=== PATIENT | female | born 1965 | race Caucasian/White ===

== ENCOUNTER 2016-10-08 14:44 | Emergency (ER) | payer OTHER ==
[~2016-10-08] VITALS: Ht 167.6 cm; Wt 63.5 kg
[2016-10-08 15:05] VITALS: BP 112/76
--- NOTE | 2016-10-08 15:48 | ED ANIMAL BITE/WOUND CHECK ---
History of Present Illness General Chief Complaint: General Adult Stated Complaint: "EXPOSED TO RABIES, BAT IN HOUSE X2DAYS" Source: patient, family, old records Exam Limitations: no limitations Vital Signs & Intake/Output Vital Signs & Intake/Output Vital Signs Date Time Temp Pulse Resp B/P B/P Pulse O2 O2 Flow FiO2 Mean Ox Delivery Rate 10/08 1505 97.8 69 18 112/76 100 Room Air ED Intake and Output 10/09 0000 10/08 1200 Intake Total Output Total Balance Patient 140 lb Weight Weight Reported by Patient Measurement Method Allergies Coded Allergies: casein (Severe, HIVES 10/08/16) Uncoded Allergies: MINICIN (Severe, HIVES 10/08/16) Triage Note: PT TO ED FOR RABIES EXPOSURE, STATING THERE WAS A BAT IN THEIR HOUSE, NO KNOWN BITES Triage Nurses Notes Reviewed? yes Onset: Abrupt Duration: week(s): (1) Timing: remote history Injury Environment: home Is Injury an Animal Bite? No Severity: mild Severity Numbers: 1 No Modifying Factors: none Associated Symptoms: DENIES HPI: 50-year-old FEmale presents with family for evaluation after they found a pad in their house. The patient denies being bit. She is without any complaints or modifying factors or associated symptoms otherwise. They were referred to the ER for rabies vaccination protocol. She is otherwise without any complaints (MILADY CRAIG) Past History Travel History Traveled to [place] past 21 day No Medical History Any Pertinent Medical History? none Neurological: NONE EENT: NONE Cardiovascular: NONE Respiratory: NONE Gastrointestinal: NONE Hepatic: NONE Renal: NONE Musculoskeletal: NONE Psychiatric: NONE Endocrine: NONE Blood Disorders: NONE Cancer(s): NONE Surgical History Surgical History: none Psychosocial History What is your primary language Maltese Tobacco Use: Never used ETOH Use: occasional use Illicit Drug Use: denies illicit drug use Family History Hx Contributory? No (MILADY CRAIG) Review of Systems Review of Systems Constitutional: Reports: see HPI. All Other Systems: Reviewed and Negative Comments Review of systems: See HPI, All other systems negative. Constitutional, no chills no fever, no malaise HEENT: No visual changes no sore throat no congestion Cardiovascular: No chest pain , no palpitation Skin: no rashes, no change in skin Respiratory: No dyspnea no cough no sputum GI: No nausea no vomiting, Muscle skeletal: No joint pain, no joint swelling, no back pain, no neck pain, Neurologic: no headache Psych: No stress Heme/endocrine: No bruising Immunology: No lymphadenopathy (MILADY CRAIG) Physical Exam Physical Exam General Appearance: well developed/nourished, no apparent distress, alert, awake Comments: Well-developed well-nourished patient in no apparent distress. HEENT: Atraumatic, extraocular motion intact Neck: Supple, FROM Back: FROM Respiratory: No respiratory distress. Patient speaking in full complete sentences. Extremities: full range of motion Neuro: awake, alert, and oriented to person, place and time. There were no obvious focal neurologic abnormalities. Skin: Warm & dry;No appreciable rash on exposed skin Psych: Mood affect normal, normal memory normal judgment. (MILADY CRAIG) Progress Differential Diagnosis: rabies, cellulitis Plan of Care: Current Medications Sig/Reinier Start time Last Medication Dose Stop Time Status Admin Rabies Immune 1,260 UNITS ONCE ONE 10/08 1600 AC Globulin 10/08 1601 (Rabies Immune Globlulin Inj) Rabies Vaccine 1 SYR ONCE ONE 10/08 1600 AC (Rabies (Vaccine) 10/08 1601 Inj (1ML)) Rabies immunoglobulin vaccine administered the patient was instructed as to return dates I answered all their questions apical pleural plan (MILADY CRAIG) Departure Departure Time of Disposition: 1600 Disposition: HOME OR SELF CARE Condition: Stable Clinical Impression Primary Impression: Need for rabies vaccination Referrals: UNKNOWN (PCP/Family) Additional Instructions: As discussed return for further rabies vaccination on 10/11, 10/15 and 10/22. return at anytime sooner with any concerns Departure Forms: Customer Survey General Discharge Information (MILADY CRAIG) PA/SUPPLIER MANAGER Co-Sign Statement Statement: ED Attending supervision documentation- I saw and evaluated the patient. I have also reviewed all the pertinent lab results and diagnostic results. I agree with the findings and the plan of care as documented in the PA's/SUPPLIER MANAGER's documentation. x I have reviewed the ED Record and agree with the PA's/SUPPLIER MANAGER's documentation. [] Additions or exceptions (if any) to the PAs/SUPPLIER MANAGER's note and plan are summarized below: [] (MARIVEL BETTENCOURT,SUSAN)
== END 2016-10-08 16:52 ==
LOC: ERH 14:44
DX: Z20.3 Contact with and (suspected) exposure to rabies (principal)
CPT/HCPCS: 90376; 90471; 99281

== ENCOUNTER 2016-10-11 09:05 | Emergency (ER) | payer OTHER ==
[2016-10-11 09:10] VITALS: BP 98/64
--- NOTE | 2016-10-11 09:39 | ED ANIMAL BITE/WOUND CHECK ---
History of Present Illness General Chief Complaint: General Adult Stated Complaint: SECOND RABIES SHOT Source: patient, old records Exam Limitations: no limitations Vital Signs & Intake/Output Vital Signs & Intake/Output Vital Signs Date Time Temp Pulse Resp B/P B/P Pulse O2 O2 Flow FiO2 Mean Ox Delivery Rate 10/11 0910 98.0 80 20 98/64 98 Room Air Allergies Coded Allergies: casein (Severe, HIVES 10/08/16) Uncoded Allergies: MINICIN (Severe, HIVES 10/08/16) Reconcile Medications No Known Home Medications Triage Note: Pt presents to ER for second rabies shot Triage Nurses Notes Reviewed? yes Onset: Abrupt Duration: day(s): (3) Timing: recent history Injury Environment: home Associated Symptoms: none HPI: 50 year old female presents for second rabies vaccine. She was exposed to a bat in the house. Past History Travel History Traveled to [place] past 21 day No Medical History Any Pertinent Medical History? see below for history Neurological: NONE EENT: NONE Cardiovascular: NONE Respiratory: NONE Gastrointestinal: NONE Hepatic: NONE Renal: NONE Musculoskeletal: NONE Psychiatric: NONE Endocrine: NONE Blood Disorders: NONE Cancer(s): NONE Surgical History Surgical History: none Psychosocial History What is your primary language Mohawk Tobacco Use: Never used Family History Hx Contributory? No Review of Systems Review of Systems Constitutional: Denies: chills, fever. EENTM: Reports: no symptoms. Respiratory: Denies: cough, short of breath. Cardiovascular: Denies: chest pain. GI: Reports: no symptoms. Genitourinary: Reports: no symptoms. Musculoskeletal: Reports: no symptoms. Skin: Reports: no symptoms. Neurological/Psychological: Reports: no symptoms. Hematologic/Endocrine: Denies: bruising. Immunologic/Allergic: Reports: no symptoms. All Other Systems: Reviewed and Negative Physical Exam Physical Exam General Appearance: well developed/nourished, mild distress Head: atraumatic Eyes: Bilateral: normal appearance. Ears, Nose, Throat: hearing grossly normal Neck: normal inspection, supple Respiratory: normal breath sounds Cardiovascular: regular rate/rhythm Extremities: normal range of motion Neurologic/Psych: awake, alert, oriented x 3, normal mood/affect Progress Differential Diagnosis: rabies prophylaxis Plan of Care: RABIES PROPHYLAXIS Departure Departure Time of Disposition: 946 Disposition: HOME OR SELF CARE Condition: Stable Clinical Impression Primary Impression: Need for rabies vaccination Referrals: NANCY BETTENCOURT,GISSELLE Phillips (PCP/Family) Additional Instructions: RETURN FOR THE REMAINDER OF THE VACCINES. Departure Forms: Customer Survey General Discharge Information Prescriptions: Current Visit Scripts No Known Home Medications
== END 2016-10-11 09:56 ==
LOC: ERH 09:05
DX: Z23 Encounter for immunization (principal)
CPT/HCPCS: 90471; 99281

== ENCOUNTER 2016-10-15 07:50 | Emergency (ER) | payer OTHER ==
[~2016-10-15] VITALS: Ht 167.6 cm; Wt 63.5 kg
[2016-10-15 08:00] VITALS: BP 113/72
--- NOTE | 2016-10-15 08:02 | ED ANIMAL BITE/WOUND CHECK ---
History of Present Illness General Chief Complaint: General Adult Stated Complaint: HERE FOR 3RD RABIES SHOT Source: patient, family, old records Exam Limitations: no limitations Vital Signs & Intake/Output Vital Signs & Intake/Output Vital Signs Date Time Temp Pulse Resp B/P B/P Pulse O2 O2 Flow FiO2 Mean Ox Delivery Rate 10/15 08 97.1 60 18 113/72 100 Room Air Allergies Coded Allergies: casein (Severe, HIVES 10/08/16) Uncoded Allergies: MINICIN (Severe, HIVES 10/08/16) Reconcile Medications No Known Home Medications Triage Note: HERE FOR 3RD RABIES Triage Nurses Notes Reviewed? yes HPI: Patient presents for her third rabies vaccine. Patient has no complaints from her prior shots. Past History Travel History Traveled to [place] past 21 day No Medical History Any Pertinent Medical History? none Neurological: NONE EENT: NONE Cardiovascular: NONE Respiratory: NONE Gastrointestinal: NONE Hepatic: NONE Renal: NONE Musculoskeletal: NONE Psychiatric: NONE Endocrine: NONE Blood Disorders: NONE Cancer(s): NONE Surgical History Surgical History: none Psychosocial History What is your primary language Tajik Tobacco Use: Never used ETOH Use: denies use Illicit Drug Use: denies illicit drug use Family History Hx Contributory? No Review of Systems Review of Systems Constitutional: Reports: no symptoms. Respiratory: Reports: no symptoms. Cardiovascular: Reports: no symptoms. GI: Reports: no symptoms. Musculoskeletal: Reports: no symptoms. Skin: Reports: no symptoms. Neurological/Psychological: Reports: no symptoms. Immunologic/Allergic: Reports: no symptoms. Physical Exam Physical Exam General Appearance: well developed/nourished, alert, awake Respiratory: normal breath sounds, chest non-tender, no respiratory distress, lungs clear Cardiovascular: regular rate/rhythm, normal peripheral pulses Neurologic/Psych: no motor/sensory deficits, awake, alert, oriented x 3, normal gait, normal mood/affect Progress Differential Diagnosis: RABIES VACCINE Plan of Care: Current Medications Sig/Reinier Start time Last Medication Dose Stop Time Status Admin Rabies Vaccine 1 SYR ONCE ONE 10/15 814 AC (Rabies (Vaccine) 10/16 815 Inj (1ML)) Departure Departure Disposition: HOME OR SELF CARE Condition: Stable Clinical Impression Primary Impression: Rabies, need for prophylactic vaccination against Referrals: NANCY BETTENCOURT,GISSELLE Phillips (PCP/Family) Additional Instructions: RETURN FOR YOU LAST SHOT OR SOONER FOR ANY CONCERNS Departure Forms: Customer Survey General Discharge Information Prescriptions: Current Visit Scripts No Known Home Medications
== END 2016-10-15 08:30 ==
LOC: ERH 07:50
DX: Z23 Encounter for immunization (principal)
CPT/HCPCS: 90471; 99291

== ENCOUNTER 2016-10-22 07:48 | Emergency (ER) | payer OTHER ==
[2016-10-22 07:53] VITALS: BP 109/69
--- NOTE | 2016-10-22 08:14 | ED GENERAL ADULT ---
History of Present Illness General Chief Complaint: Animal/Insect Bite Stated Complaint: RABIES VAC Source: patient Exam Limitations: no limitations Vital Signs & Intake/Output Vital Signs & Intake/Output Vital Signs Date Time Temp Pulse Resp B/P B/P Pulse O2 O2 Flow FiO2 Mean Ox Delivery Rate 10/22 0753 69 16 109/69 100 Room Air Allergies Coded Allergies: casein (Severe, HIVES 10/08/16) Uncoded Allergies: MINICIN (Severe, HIVES 10/08/16) Reconcile Medications No Known Home Medications Triage Note: PT HERE FOR LAST RABBIES SHOT. Triage Nurses Notes Reviewed? yes HPI: Patient presents for treatment of a bat exposure requiring rabies vaccination series. A bat was found in the home that was likely present for about 2 days. The patient denies bite, fever or cold symptoms. Past History Travel History Traveled to [place] past 21 day No Medical History Any Pertinent Medical History? see below for history Neurological: NONE EENT: NONE Cardiovascular: NONE Respiratory: NONE Gastrointestinal: NONE Hepatic: NONE Renal: NONE Musculoskeletal: NONE Psychiatric: NONE Endocrine: NONE Blood Disorders: NONE Cancer(s): NONE Surgical History Surgical History: none Psychosocial History What is your primary language Luxembourgish Tobacco Use: Never used Family History Hx Contributory? No Review of Systems Review of Systems Constitutional: Reports: no symptoms. EENTM: Reports: no symptoms. Respiratory: Reports: no symptoms. Cardiovascular: Reports: no symptoms. GI: Reports: no symptoms. Genitourinary: Reports: no symptoms. Musculoskeletal: Reports: no symptoms. Skin: Reports: no symptoms. Neurological/Psychological: Reports: no symptoms. Hematologic/Endocrine: Reports: no symptoms. Immunologic/Allergic: Reports: no symptoms. All Other Systems: Reviewed and Negative Physical Exam Physical Exam General Appearance: see below Comments: Gen.: Well-nourished, well-developed, no acute respiratory distress. Head: Normocephalic, atraumatic. Eyes: Normal inspection bilaterally Ears: Normal inspection bilaterally Nose: Normal inspection Throat/mouth : Moist mucosa Neck: Supple, full range of motion, no goiter Lungs: Quiet respirations Back: Normal range of motion Extremities: Normal range of motion grossly, no cyanosis clubbing or edema of the upper extremities Neurologic: Cranial nerves grossly intact, speech is clear Skin: warm and dry Psychiatric: Calm, cooperative, no apparent delusions or hallucinations Core Measures ACS in differential dx? No CVA/TIA Diagnosis: No Severe Sepsis Present: No Septic Shock Present: No Progress Differential Diagnoses I considered the following diagnoses in my evaluation of the patient: Rabies Plan of Care: Current Medications Sig/Reinier Start time Last Medication Dose Stop Time Status Admin Rabies Vaccine 1 SYR ONCE ONE 10/22 814 AC (Rabies (Vaccine) 10/23 815 Inj (1ML)) Initial ED EKG: none Departure Departure Disposition: HOME OR SELF CARE Condition: Stable Clinical Impression Primary Impression: Encounter for repeat administration of rabies vaccination Referrals: NANCY BETTENCOURT,GISSELLE Phillips (PCP/Family) Additional Instructions: Return if any concerns or sudden worsening. Departure Forms: Customer Survey General Discharge Information Prescriptions: Current Visit Scripts No Known Home Medications Critical Care Note Critical Care Note Critical Care Time: non-applicable
== END 2016-10-22 08:28 ==
LOC: ERH 07:48
DX: Z23 Encounter for immunization (principal)
CPT/HCPCS: 90471; 99281